=== PATIENT | female | born 1980 | race Caucasian/White ===

== ENCOUNTER 2023-10-31 14:25 | Emergency (ER) | payer OTHER ==
--- OUTSIDE RECORDS SUMMARY | 2023-10-31 14:27 | XMS REPORT | Continuity of Care Document ---
Author Name Unknown Address [address] [facility] [address] [place] [address] [facility] Address [address] [facility] 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 Name Role Phone NINI TOWNSEND Attending Clinician UnavailCARY Fleming Attending Clinician Unavailable MD MARIAELENA Attending Clinician Unavailab [place] LAB90 Attending Clinician Unavailable ARGENTINA Attending Clinician Unavailable ELIZABETH JEAN BAPTISTE Attending Clinician Unavailable TRESSA MARTELL Attending Clinician Unajameel talbot COVID-PFIZER VACC-1, DENNIS LAST Attending Clin ician Unavailable Payers Payer Name Policy Type Policy Number Effective Date Expirati on Date Source [facility] 2 [id number] 2023 00:00[facility]00 [facility] [id number] 2021 00:00:00 Problems Condition Name Condition Details Condition Category Status Onset Date Resolution Date Last Treatment Date Treating Clinician Comments Source Encounter for screening for human papillomav irus (HPV) Encounter for screening for human papillomav irus (HPV) Disease Active 09-29 00:00: 00 Radha mari Family history of colon cancer Family history of colon cancer Disease Active - 00:00: 00 Radha Balderrama - Externa kamaljit Seasonal allergies Seasonal allergies Disease Active 09-29 00:00: 00 Radha Keith Externa l Fatigue Fatigue Disease Active 09-29 00:00: 00 Radha Singha kamaljit Vitamin D deficiency Vitamin D deficiency Disease Active 3-12 00:00: 00 Radha mari Syncope Syncope Disease Active 1-17 00:00: 00 Radha mari Kidney infection - Not Controlled Kidney infection - Not Controlled Disease Active 04-11 00:00: 00 Radha mari Allergies, Adverse Reactions, Alerts Allergy Name Allergy Type Status Severity Reaction(s) Onset Date Inactive Date Treating Clinician Comments Source Morphine Propensi ty to adverse reaction s Active Itching 04-11 00:00: 00 Radha mari Social History Social Habit Start Date Stop Date Quantity Comments Source Sexual orientation 2021-04-11 10:13:30 Heterosexual (finding) Radha Balderrama - External Alcohol intake 2023-09-30 00:00:00 2023-09-30 00:00:00 Lifetime non-drinker (finding) Radha Balderrama - External History of Social function 2022-10-15 00:00:00 2022-10-15 00:00:00 Radha Balderrama - External Tobacco use and exposure 2022-08-28 00:00:00 2022-08-28 00:00:00 Smokeless tobacco non-user Radha Balderrama - External Sex Ass[birth year] At 1980 00:00:00 1980 00[birth year]:00 F Radha Balderrama - External Smoking Status Start Date Stop Date Source Never smoked tobacco Radha Balderrama - External Medications Ordered Medication Name Filled Medication Name Start Date Stop Date Current Medication? Ordering Clinician Indication Dosage Frequency Signature (SIG) Comments Components Source FLUTICASONE PROPIONATE, NASAL, 50 MCG/ACT nasal Suspension 09-02 00:00: 00 Yes [id number] 100ug Use 2 sprays (100 mcg total) in each nostril daily. Radha mari Nitrofurant oin Monohyd Macro 100 MG oral Capsule 08-28 00:00: 00 10-15 00:00 :00 No [id number] 100mg Take 1 capsule (100 mg total) by mouth 2 times daily Radha mari Immunizations Ordered Immunization Name Filled Immunization Name Date Status Comments Source Covid-19 Vaccine (realSociable), Mrna-lnp, Evens Protein, Pf, 30mcg/0.3ml,IM 2021-07-31 00:00:00 Completed Radha Seybold - External Covid-19 Vaccine (Pfizer), Mrna-lnp, Evens Protein, Pf, 30mcg/0.3ml,IM 2021-07-31 00:00:00 Completed Radha Aguilarybold - External Covid-19 Vaccine (Pfizer), Mrna-lnp, Evens Protein, Pf, 30mcg/0.3ml,IM Unknown Completed Radha Seybol d - External Covid-19 Vaccine (Pfizer), Mrna-lnp, Evens Protein, Pf, 30mcg/0.3ml,IM Unknown Completed Rahda Seybol d - External Covid-19 Vaccine (Pfizer), Mrna-lnp, Evens Protein, Pf, 30mcg/0.3ml,IM Unknown Completed Radha Aguilarybol d - External Vital Signs Vital Name Observation Time Observation Value Comments S ource Systolic blood pressure 2023-09-30 14:54:00 136 mm[Hg] Radha Aguilarybo ld - External Diastolic blood pressure 2023-09-30 14:54:00 82 mm[Hg] Radha Aguilarybo ld - External Heart rate 2023-09-30 14:54:00 68 /min Sandoval Balderrama - External Body temperature 2023-09-30 14:54:00 36.33 Yael Radha Aguilarybold - External Respiratory rate 2023-09-30 14:54:00 16 /min Radha Aguilarybold - External Body height 2023-09-30 14:54:00 157.5 cm Meenakshi reddy Seybold - External Body weight 2023-09-30 14:54:00 71.668 kg Meenakshi reddy Seybold - External BMI 2023-09-30 14:54:00 28.90 kg/m2 Meenakshi reddy Seybold - External Oxygen saturation in Arterial blood by Pulse oximetry 2023-09-30 14:54:00 100 /min Radha Aguilarybo ld - External Systolic blood pressure 2023-09-02 19:15:00 122 mm[Hg] Radha Aguilarybo ld - External Diastolic blood pressure 2023-09-02 19:15:00 82 mm[Hg] Radha Seybo ld - External Heart rate 2023-09-02 19:15:00 60 /min Kelse y Seybold - External Body temperature 2023-09-02 19:15:00 36.67 Yael Radha Seybold - External Respiratory rate 2023-09-02 19:15:00 16 /min Radha Seybold - External Body height 2023-09-02 19:15:00 157.5 cm Meenakshi ey Seybold - External Body weight 2023-09-02 19:15:00 71.81 kg Meenakshi ey Seybold - External BMI 2023-09-02 19:15:00 28.96 kg/m2 Meenakshi ey Seybold - External Oxygen saturation in Arterial blood by Pulse oximetry 2023-09-02 19:15:00 99 /min Radha Seybo ld - External Systolic blood pressure 2023-08-06 20:38:00 132 mm[Hg] Radha Seybo ld - External Diastolic blood pressure 2023-08-06 20:38:00 84 mm[Hg] Radha Seybo ld - External Heart rate 2023-08-06 20:38:00 78 /min Krishnase y Seybold - External Respiratory rate 2023-08-06 20:38:00 16 /min Radha Seybold - External Body height 2023-08-06 20:38:00 157.5 cm Meenakshi ey Seybold - External Body weight 2023-08-06 20:38:00 73.086 kg Meenakshi ey Seybold - External BMI 2023-08-06 20:38:00 29.47 kg/m2 Meenakshi ey Seybold - External Oxygen saturation in Arterial blood by Pulse oximetry 2023-08-06 20:38:00 98 /min Radha Seybo ld - External Systolic blood pressure 2022-10-15 14:36:00 130 mm[Hg] Radha Seybo ld - External Diastolic blood pressure 2022-10-15 14:36:00 84 mm[Hg] Radha Seybo ld - External Heart rate 2022-10-15 14:36:00 78 /min Kelse y Seybold - External Body temperature 2022-10-15 14:36:00 36.28 Yael Radha Seybold - External Respiratory rate 2022-10-15 14:36:00 14 /min Radha Seybold - External Body height 2022-10-15 14:36:00 157.5 cm Meenakshi ey Seybold - External Body weight 2022-10-15 14:36:00 71.215 kg Meenakshi ey Seybold - External BMI 2022-10-15 14:36:00 28.72 kg/m2 Meenakshi ey Seybold - External Systolic blood pressure 2022-08-28 16:35:00 138 mm[Hg] Radha Seybo ld - External Diastolic blood pressure 2022-08-28 16:35:00 78 mm[Hg] Radha Seybo ld - External BMI 2022-08-28 15:39:00 28.90 kg/m2 Meenakshi ey Seybold - External Oxygen saturation in Arterial blood by Pulse oximetry 2022-08-28 15:39:00 99 /min Radha Seybo ld - External Heart rate 2022-08-28 15:39:00 81 /min Kelse y Seybold - External Body temperature 2022-08-28 15:39:00 36.5 Yael Radha Seybold - External Respiratory rate 2022-08-28 15:39:00 14 /min Radha Seybold - External Body height 2022-08-28 15:39:00 157.5 cm Meenakshi ey Seybold - External Body weight 2022-08-28 15:39:00 71.668 kg Meenakshi ey Seybold - External Procedures Procedure Date / Time Performed Performing Clinicia n Source URINALYSIS NONAUTO W/O SCOPE 2022-08-28 17:01:21 Tressa Martell Radha Seybold - External Encounters Start Date/Time End Date/Time Encounter Type Admission Type Attending [facility] Care Department Encounter ID Source 2023-12-04 09:00:00 2023-12-04 09:00:00 Outpatient NINI TOWNSEND [id number] Radha Balderrama 2023-11-20 08:30:00 2023-11-20 08:30:00 Outpatient CARY HENSLEY [id number] Radha Balderrama 2023-10-06 00:00:00 2023-10-06 00:00:00 Outpatient MD RADHA LEYVA [id number] Radha formerly [facility] 2023-10-02 00:00:00 2023-10-02 00:00:00 Outpatient MD RADHA LEYVA [id number] Radha formerly [facility] 2023-10-01 00:00:00 2023-10-01 00:00:00 Outpatient NINI TOWNSEND RADHA CARRION [id number] Radha formerly [facility] 2023-10-01 00:00:00 2023-10-01 00:00:00 Outpatient NINI TOWNSEND RADHA CARRION [id number] Radha [facility] 2023-09-30 10:50:00 2023-09-30 10:50:00 Outpatient LABKathryn RADHA CARRION [id number] Radha [facility] 2023-09-30 10:00:00 2023-09-30 10:00:00 Outpatient NINI TOWNSEND RADHA CARRION [id number] Radha [facility] 2023-09-25 13:00:00 2023-09-25 13:00:00 [facility] [id number] [facility]:00:00 2023-09-22 00:00:00 Outpatient NINI TOWNSEND RADHA CARRION [id number] Radha [facility] 2023-09-02 13:30:00 2023-09-02 13:30:00 Outpatient NINI TOWNSEND [facility] [id number] [facility] 2023-08-28 14:30:00 2023-08-28 14:30:00 Outpatient [facility] [id number] [facility] 2023-08-28 13:15:00 2023-08-28 13:15:00 Outpatient TRED54 RADHA [facility]ARR[facility] [id number] [facility] 2023-08-20 00:00:00 2023-08-20 00:00:00 Outpatient NINI TOWNSEND [facility] [id number] [facility] 2023-08-19 10:00:00 2023-08-19 10:00:00 Outpatient ELIZABETH JEAN BAPTISTE [id number] [facility] 2023-08-19 10:00:00 2023-08-19 10:00:00 Outpatient TRED54 RADHA CARRION [id number] Radha Aguilarchad 2023-08-14 00:00:00 2023-08-14 00:00:00 Outpatient NINI TOWNSENDVANESSA CARRION [id number] Radha chad 2023-08-12 00:00:00 2023-08-12 00:00:00 Outpatient NINI TOWNSEND RADHA [id number] [facility]ha [facility] 2023-08-12 00:00:00 2023-08-12 00:00:00 Outpatient NINI TOWNSEND RADHA CARRION [id number] Radha [facility] 2023-08-08 08:25:00 2023-08-08 08:25:00 Outpatient LAB90 RADHA CARRION [id number] Radha chad 2023-08-07 00:00:00 2023-08-07 00:00:00 Outpatient NINI TOWNSEND [facility] [id number] [facility]:00:00 2023-08-07 00:00:00 Outpatient MD RADHA LEYVA [id number] Radha [facility] 2023-08-06 14:30:00 2023-08-06 14:30:00 Outpatient NINI TOWNSEND RADHA CARRION [id number] Radha [facility] 2023-01-03 00:00:00 2023-01-03 00:00:00 Outpatient TRESSA MARTELL [id number] [facility] 2022-10-23 08:35:00 2022-10-23 08:35:00 Outpatient LAB90 RADHA [facility]ARRION [id number] [facility] 2022-10-15 10:20:00 2022-10-15 10:20:00 Outpatient LAB90 [facility]ARR[facility] [id number] [facility] 2022-10-15 09:30:00 2022-10-15 09:30:00 Outpatient TRESSA MARTELL [id number] [facility] 2022-08-28 11:30:00 2022-08-28 11:30:00 Outpatient LAB90 RADHA RADHA [id number] [facility] 2022-08-28 09:45:00 2022-08-28 09:45:00 Outpatient TRESSA MARTELL RADHA CARRION [id number] [facility] 2021-07-31 09:00:00 2021-07-31 09:00:00 Outpatient COVID-PFIZE R VACC-1, SONNY CARRION RADHA [id number] [facility] 2021-04-11 10:30:00 2021-04-11 10:30:00 Outpatient TRESSA MARTELL RADHA CARRION [id number] [facility] Results Test Description Test Time Test Comments Results Result Co mments Source [facility] - External Notes Date/Time Note Provider Source 2023-09-30 10:00:05 [id number] [id number] dxGPrX0WQZ0uBr9w0KHMJ3ym/MFp0J9583 -03-12T10:00:05 Chief ComplaintPatient presents withPhysicalHad labs done in Christie Guzmanectronically signed by Helen Vinson LVN at 09/30/2023 10:00 AM [id number] [id number]:00:38Nurse [id number] .2.337467|[id number] for patient [id number] NoteLNNARRATIVEFormatted C-CDA narrative textKRISHNAOKE[facility]EEPOhio[facility] [id number] [id number]:00:381.2.840.1143 50.1.72.3.15|1.2.840.906050.1.13.1 [id number]_[id number] [facility] 2023-09-02 13:19:53 VP5na8v5Wd6YOl8h8aNH p4NWyi2XQ0jQpx fQoKr/CRkzaNJ8coJtGYIkanrLonfo9254 -02-13T13:19:53 Chief ComplaintPatient presents withFollow-Up Visit1 month follow upChristie Romoectronically signed by Helen Vinson LVN at 09/02/2023 1:21 PM [id number] [id number]:21:48Nurse NoteTXT1.2.840.180614.1.13.131.2.7 .2.157040|[id number] for patient zcvb42026-3Pmwbu NoteLNNARRATIVEFormatted C-CDA narrative [facility] [place], [place] [id number]:21:481.2.840.1143 50.1.72.3.15|1.2.840.983650.1.13.1 31.2.7.2.727879_[id number] [facility] 2023-08-06 14:42:34 nNvAXdjtBBRkjTDbyCcC [id number] NrwKq2M5JtWhzMe05FnmtwvqR/isGg27102023T14:42:34 Chief ComplaintPatient presents withFollow-Up VisitPatient states she blacked out for one minute last night Was incontinent of urine during episodePaKyleigh Guzmanronically signed by Helen Vinson LVN at 08/06/2023 2:42 PM [id number] [id number]:42:57Nurse NoteTXT1.2.840.671214.1.13.131.2.7 .2.153993|[id number] for patient zzfk15638-5Fugzp NoteLNNARRATIVEFormatted C-CDA narrative [id number] L [facility] [id number] [id number]:42:571.2.840.1143 50.1.72.3.15|1.2.840.987817.1.13.1 31.2.7.2.727879_[id number] [facility] V[facility]"
[2023-10-31 15:25] LABS: Absolute Basophils 0.1 K/uL (0-0.5); Absolute Eosinophils 0.1 K/uL (0-0.5); Absolute Lymphocytes (CBC) 1.6 K/uL (0.7-4.9); Absolute Monocytes 0.4 K/uL (0.1-1.3); Absolute Neutrophil 3.4 K/uL (1.8-8.0); Basophils % 1.2 % (0-1.3); Eosinophils % 1.7 % (0-4.4); Hematocrit 39.8 % (36.0-45.0); Hemoglobin 13.4 g/dL (12.0-15.0); Lymphocytes % 28.7 % (15.3-44.8); MCH 28.7 pg (27.0-35.0); MCHC 33.8 g/dL (32.0-36.0); MPV 8.9 fL (7.6-11.3); Neutrophils % 61.4 % (41.7-73.7); Platelets 326 thou/uL (152-406); RBC Red Blood Cell Count 4.68 M/uL (3.86-4.86)
[2023-10-31 15:38] LABS: Specific Gravity 1.005 (1.005-1.030); Urine Bilirubin NEGATIVE (Negative); Urine Blood Negative (Negative); Urine Clarity Clear (Clear); Urine Color Colorless (Yellow); Urine Glucose NEGATIVE (Negative); Urine Ketones NEGATIVE (Negative); Urine Microscopic Reflex YN NO UMIC; Urine Nitrite NEGATIVE (Negative); Urine Protein NEGATIVE (Negative); Urine Urobilinogen Normal (Normal); Urine pH 5.5 (5.0-7.0)
[2023-10-31 15:46] LABS: Albumin 3.8 g/dL (3.4-5.0); Anion Gap 10.2 mEq/L (5.0-15.0); Bilirubin Total 0.4 mg/dL (0.2-1.0); Globulin 3.8 g/dL (2.3-3.5); Potassium 4.2 mEq/L (3.5-5.1); Protein, Total 7.6 g/dL (6.4-8.2)
--- NOTE | 2023-10-31 16:31 | RAD REPORT ---
EXAM DESCRIPTION: CT - Abdomen Pelvis W Contrast - 10/31/2023 4:09 pm CLINICAL HISTORY: ABD PAIN COMPARISON: No comparisons TECHNIQUE: Thin cut axial CT imaging of the abdomen and pelvis was performed following intravenous a dministration of 100 mL Isovue 300. Multiplanar reformats were generated and reviewed. All CT scans are performed using dose optimization technique as appropriate and may include automated exposure control or mA/KV adjustment according to patient size. FINDINGS: No suspicious findings in the lung bases. The liver, spleen, adrenal glands, and pancreas show no suspicious findings. Gallbladder and biliary tree are also without suspicious finding. Symmetric renal function is seen with no hydronephrosis or suspicious renal mass. No dilated bowel loops or bowel wall thickening. No free air, free fluid or inflammatory stranding. N o hernia, mass or bulky lymphadenopathy. The urinary bladder is without significant finding. No suspicious bony findings. IMPRESSION: No acute intra-abdominal process.
--- NOTE | 2023-10-31 16:45 | ER ---
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 hb 14:34 Coronavirus screen: At this time, the client does not indicate any symptoms associated hb with coronavirus-19. Ebola Screen: No symptoms or risks identified at this time. Initial Sepsis Screen: Does the patient meet any 2 criteria? No. Patient's initial sepsis screen is negative. Does the patient have a suspected source of infection? No. Patient's initial sepsis screen is negative. Risk Assessment: Do you want to hurt yourself or someone else? Patient reports no desire to harm self or others. Onset of symptoms was October 31, 2023. 14:34 Method Of Arrival: Ambulatory hb 14:34 Acuity: JANIS 3 hb Triage Assessment: 14:36 General: Appears in no apparent distress. uncomfortable, Behavior is calm, cooperative. hb Pain: Pain currently is 7 out of 10 on a pain scale. Neuro: Level of Consciousness is awake, alert, obeys commands, Oriented to person, place, time, situation. Cardiovascular: Patient's skin is warm and dry. Respiratory: Respiratory effort is even, unlabored, Respiratory pattern is regular, symmetrical. GI: Reports upper abdominal pain. 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 - Infectious Disease History:: Denies. - Social history:: Smoking status: Patient denies any tobacco usage or history of. - Family history:: not pertinent. - Hospitalizations: : No recent hospitalization is reported. Screenin:18 [facility] ED Fall Risk Assessment (Adult) History of falling in the last 3 months, me1 including since admission No falls in past 3 months (0 pts) Confusion or Disorientation No (0 pts) Intoxicated or Sedated No (0 pts) Impaired Gait No (0 pts) Mobility Assist Device Used No (0 pt) Altered Elimination No (0 pt) Score/Fall Risk Level 0 - 2 = Low Risk Maintained a safe environment, Provided non-skid footwear, Hourly rounding (assess needs \T\ fall precautionary measures) done. Abuse screen: Denies threats or abuse. Nutritional screening: No deficits noted. Tuberculosis screening: No symptoms or risk factors identified. Assessment: 15:18 General: Appears uncomfortable, well groomed, well developed, well nourished, Behavior me1 is calm, cooperative, appropriate for age, Reports c/o LUQ pain that is sharp in nature, started about 1 pm. Denies n/v/d. States pain was a 7/10 at the worst and is now a 1-2/10. Patient refused pain meds at this time as pain has subsided. Pain: Complains of pain in left upper quadrant Pain does not radiate. Pain currently is 2 out of 10 on a pain scale. Quality of pain is described as sharp, Pain began suddenly, 3 hours ago. Is continuous. Neuro: Level of Consciousness is awake, alert, obeys commands, Oriented to person, place, time, situation, Appropriate for age. Cardiovascular: Capillary refill < 3 seconds Patient's skin is warm and dry. Respiratory: Airway is patent Trachea midline Respiratory effort is even, unlabored, Respiratory pattern is regular, symmetrical. GI: Abdomen is non-distended, Bowel sounds present X 4 quads. Abd is soft X 4 quads. : No signs and/or symptoms were reported regarding the genitourinary system. Derm: Skin is intact, is healthy with good turgor, Skin is pink, warm \T\ dry. Musculoskeletal: No signs and/or symptoms reported regarding the musculoskeletal system. Vital Signs: 14:34 BP 172 / 108; Pulse 74; Resp 16; Temp 98.8(O); Pulse Ox 100% on R/A; Weight 68.04 kg; hb Height 5 ft. 2 in. ; Pain 7/10; 15:08 BP 146 / 80; Pulse 58; Resp 16; Pulse Ox 100% on R/A; me1 15:30 BP 137 / 98; Pulse 4; Resp 14; Pulse Ox 100% on R/A; me1 16:30 BP 140 / 88; Pulse 59; Resp 16; Pulse Ox 100% on R/A; me1 14:34 Body Mass Index 27.44 (68.04 kg, 157.48 cm) hb 14:34 Pain Scale: Adult hb ED Course: 14:28 Patient arrived in ED. mg5 14:30 Balaji Norton MD is Attending Physician. rn 14:33 Arm band placed on. hb 14:36 Triage completed. hb 14:45 Zenaida Quintana, RN is Primary Nurse. db 15:16 Client placed on continuous cardiac and pulse oximetry monitoring. NIBP monitoring me1 applied. Pulse ox on. NIBP on. 15:16 Initial lab(s) drawn, by me, sent to lab. Urine collected: clean catch specimen, clear. me1 Inserted saline lock: 22 gauge in right antecubital area, using aseptic technique. 15:16 CBC with Diff Sent. me1 15:16 CMP Sent. me1 15:16 Lipase Sent. me1 15:16 Test, Urine Sent. me1 15:16 Urinalysis w/ reflexes Sent. me1 15:18 Patient has correct armband on for positive identification. Bed in low position. Call me1 light in reach. Side rails up X 1. Provided Education on: POC. Verbalized understanding . 15:18 No provider procedures requiring assistance completed. me1 15:41 Yola Caceres, RN is Primary Nurse. me1 16:11 CT Abd/Pelvis - IV Contrast Only In Process Unspecified. EDMS 16:54 IV discontinued, intact, bleeding controlled, No redness/swelling at site. Pressure me1 dressing applied. Administered Medications: 15:17 Not Given (Patient Refused): fentanyl (pf)50 mcg IVP once me1 Medication: 15:18 VIS not applicable for this client. me1 Outcome: 16:44 Discharge ordered by . rn 16:54 Discharged to home ambulatory, with significant other, me1 16:54 Condition: stable 16:54 Discharge instructions given to patient, significant other, Instructed on discharge instructions, follow up and referral plans. Demonstrated understanding of instructions, follow-up care, 16:54 Patient left the ED. me1 Signatures: Dispatcher [employer] EDMS Balaji Norton MD MD rn Baxter, Heather, RN RN Zenaida Quintana, Yola Porras RN, RN RN me1 Daisha Duong mg5 Corrections: (The following items were deleted from the chart) 14:34 14:33 PSHx: None; hb hb 14:36 14:33 Chief complaint: Left upper abdominal pain x days hb hb 14:36 14:33 Allergies: No Known Allergies; hb hb 14:38 14:34 BP 172 / 108; Pulse 74bpm; Resp 16bpm; Pulse Ox 100% RA; 68.04 kg; Height 5 ft. 2 hb in.; BMI: 27.4; Pain 7/10, Adult; hb
--- NOTE | 2023-10-31 16:45 | EDPHYS ---
Physician Documentation [facility] Name: Diane Penaloza Age: 43 yrs Sex: Female : 1980 Arrival Date: 10/31/2023 Time: 14:25 Bed 19 Private MD: ED Physician Balaji Norton HPI: 10/30 15:07 This 43 yrs old Female presents to ER via Ambulatory with complaints of Abdominal Pain. rn 15:07 The patient presents with abdominal pain in the left upper quadrant. Onset: The rn symptoms/episode began/occurred just prior to arrival. The symptoms do not radiate. Associated signs and symptoms: Pertinent negatives: nausea and vomiting, anorexia, blood in stools, chest pain, constipation, diarrhea, dysuria, fever, hematuria, shortness of breath, vaginal discharge. The symptoms are described as achy, crampy. Modifying factors: The symptoms are alleviated by nothing, the symptoms are aggravated by touching the area. Severity of pain: At its worst the pain was moderate in the emergency department the pain has improved. The patient has not experienced similar symptoms in the past. The patient has not recently seen a physician. 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 - Infectious Disease History:: Denies. - Social history:: Smoking status: Patient denies any tobacco usage or history of. - Family history:: not pertinent. - Hospitalizations: : No recent hospitalization is reported. ROS: 15:07 Constitutional: Negative for fever, chills, and weight loss, Eyes: Negative for injury, rn pain, redness, and discharge, Neck: Negative for injury, pain, and swelling, Cardiovascular: Negative for chest pain, palpitations, and edema, Respiratory: Negative for shortness of breath, cough, wheezing, and pleuritic chest pain, Abdomen/GI: + abd pain Back: Negative for injury and pain, : Negative for injury, bleeding, discharge, and swelling, MS/Extremity: Negative for injury and deformity, Skin: Negative for injury, rash, and discoloration, Neuro: Negative for headache, weakness, numbness, tingling, and seizure, Exam: 15:07 Constitutional: This is a well developed, well nourished patient who is awake, alert, rn appears in pain Head/Face: Normocephalic, atraumatic. Cardiovascular: Regular rate and rhythm. No pulse deficits. Respiratory: No increased work of breathing, no retractions or nasal flaring. Abdomen/GI: Soft, mild epigastric and left upper quadrant tenderness Neuro: Awake and alert, GCS 15 Vital Signs: 14:34 BP 172 / 108; Pulse 74; Resp 16; Temp 98.8(O); Pulse Ox 100% on R/A; Weight 68.04 kg; hb Height 5 ft. 2 in. ; Pain 7/10; 15:08 BP 146 / 80; Pulse 58; Resp 16; Pulse Ox 100% on R/A; me1 15:30 BP 137 / 98; Pulse 4; Resp 14; Pulse Ox 100% on R/A; me1 16:30 BP 140 / 88; Pulse 59; Resp 16; Pulse Ox 100% on R/A; me1 14:34 Body Mass Index 27.44 (68.04 kg, 157.48 cm) hb 14:34 Pain Scale: Adult hb MDM: 14:30 Patient medically screened. rn 16:43 Differential diagnosis: appendicitis, bowel obstruction, cholecystitis, Cholelithiasis, rn gastritis, gastroesophageal reflux disease, non-specific abd pain, pancreatitis, Peptic Ulcer Disease, Perf. Duodenal Ulcer, Pyelonephritis, Ureterolithiasis, urinary tract infection. Data reviewed: vital signs, nurses notes, lab test result(s), radiologic studies, CT scan, and as a result, I will discharge patient. Counseling: I had a detailed discussion with the patient and/or guardian regarding the historical points, exam findings, and any diagnostic results supporting the discharge/admit diagnosis, lab results, radiology results, the need for outpatient follow up, to return to the emergency department if symptoms worsen or persist or if there are any questions or concerns that arise at home. Response to treatment: the patient's symptoms have markedly improved after treatment, and as a result, I will discharge patient. Special discussion: Based on the patient's Hx, exam, and Dx evaluation, there is no indication for emergent surgery or inpatient Tx. It is understood by the patient/guardian that if the Sx's persist or worsen they need to return immediately for re-evaluation. I discussed with the patient/guardian in detail that at this point there is no indication for admission to the hospital. It is understood, however, that if the symptoms persist or worsen the patient needs to return immediately for re-evaluation. Based on the history and exam findings, there is no indication for further emergent testing or inpatient evaluation. I discussed with the patient/guardian the need to see the prizer hand for further evaluation of the symptoms. I discussed with the patient/guardian the need to see the primary care provider for further evaluation of the symptoms. ED course: No acute findings at this time. Told her her symptoms just began an hour prior to arrival recommend close observation and given strict return precautions. I have personally reviewed all of the results, including but not limited to blood tests and imaging deemed necessary to safely discharge this patient at this time. All results given to and printed out for patient. I personally went over all the results with the patient and answered all questions. Patient will follow-up with PCP and or specialist as discussed. Return precautions given and understood.. 10/30 14:36 Order name: CBC with Diff; Complete Time: 16:08 10/30 14:36 Order name: CMP; Complete Time: 16:08 10/30 14:36 Order name: Lipase; Complete Time: 16:08 rn 10/30 14:36 Order name: Test, Urine; Complete Time: 16:08 rn 10/30 14:36 Order name: Urinalysis w/ reflexes; Complete Time: 16:08 10/30 14:36 Order name: CT Abd/Pelvis - IV Contrast Only; Complete Time: 16:34 rn 10/30 14:36 Order name: IV Saline Lock; Complete Time: 15:16 rn 10/30 14:36 Order name: Labs collected and sent; Complete Time: 15:16 rn Administered Medications: 15:17 Not Given (Patient Refused): fentanyl (pf)50 mcg IVP once me1 Disposition Summary: 10/31/23 16:44 Discharge Ordered Notes: Location: Home rn Problem: new rn Symptoms: have improved rn Condition: Stable rn Diagnosis - Abdominal pain, unspecified rn Followup: rn - With: Private Physician - When: As needed - Reason: Recheck today's complaints, Re-evaluation by your physician Discharge Instructions: - Discharge Summary Sheet rn - Abdominal Pain, Adult rn - Pain Without a Known Cause rn Forms: - Medication Reconciliation Form rn - Thank You Letter 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
[2023-10-31 20:59] VITALS: BP 140/88; TEMP 98.8; O2SAT 100
== END 2023-10-31 16:54 | disposition home or self-care (01) ==
LOC: ER 14:25
DX: R10.12 Left upper quadrant pain (principal)
CPT/HCPCS: 85025; 36415; 81025; 81003; 83690; 80053; 74177; 99284; Q9967